=== PATIENT | male | born 1975 | race Caucasian/White ===

== ENCOUNTER 2017-09-06 00:18 | Observation (INO) ==
[2017-09-06] MEDS ORDERED: Folic Acid 1 MG in D5% in Water 50 ML IVPB ONE (00:23)
[2017-09-06] MEDS ORDERED: Thiamine (B-1) 100 MG, Folic Acid 1 MG in D5% in Water 50 ML IVPB ONE (00:23)
[2017-09-06 00:35] LABS: Basophils # 0.1 K/mcL (0.0-0.2); Basophils % 0.5 %; Eosinophils # 0.1 K/mcL (0.0-0.6); Eosinophils % 0.4 %; Hematocrit 45.7 % (37.5-50.1); Hemoglobin 15.3 g/dL (12.9-16.9); Immature Granulocytes % 0.4 % (0-4); Lymphocytes # 4.6 K/mcL (0.6-4.6); Lymphocytes % 31.1 %; Mean Corpuscular HGB Conc 33.5 g/dL (31.6-35.5); Mean Corpuscular Hemoglobin 32.3 pg (28.0-33.3); Mean Corpuscular Volume 96.6 fL (83.0-100.0); Mean Platelet Volume 10.5 fL (9.4-12.4); Monocytes # 1.4 K/mcL (0.0-1.3); Monocytes % 9.3 %; Neutrophils # 8.7 K/mcL (1.6-8.9); Platelet Count 249 K/mcL (140-400); Red Blood Count 4.73 M/mcL (4.19-5.50); Red Cell Distribution Width 13.2 % (11.5-14.5); Segmented Neutrophils % 58.3 %
--- NOTE | 2017-09-06 00:42 | Emergency Department Note ---
Disposition Clinical Impression: Alcoholic intoxication Qualifiers: Complication of substance-induced condition: with unspecified complication Qualified Code(s): F10.929 - Alcohol use, unspecified with intoxication, unspecified Pancreatitis Qualifiers: Chronicity: acute Pancreatitis type: alcohol induced Acute pancreatitis complication: unspecified Qualified Code(s): K85.20 - Alcohol induced acute pancreatitis without necrosis or infection Disposition: Admitted As Inpatient Alcohol HPI - General Chief Complaint: ED Alcohol Abuse Stated Complaint: ETOH Source: patient, EMS Limitations: no limitations Nursing Notes Reviewed: Yes Vital Signs Reviewed: Yes - History of Present Illness HPI Narrative: 42-year-old male presents to the emergency department with concern for alcohol intoxication. Patient was stated to have fallen out of a taxicab. The fall was not witnessed. EMS states that patient's vitals are stable on arrival. He stated that his respiratory status was stable as well. Patient does not answer any questions. - Related Data Allergies Allergy/AdvReac Type Severity Reaction Status Date / Time Unable to Assess Allergy Unverified 09/06/17 00:30 All systems ED: reviewed and negative except as stated. Review of Systems: As Per HPI Limitations: ROS unobtainable due to patients medical condition Past Medical History - Past Medical History Medical history: Reports: other - Social History Smoking Status: Unknown if ever smoked Smokeless Tobacco Status: No Alcohol use: Reports: heavy, recent Drug use: Reports: other Physical Exam CONSTITUTIONAL: Altered then appearing 42-year-old male who appears older than stated age, not responding to questions. HEAD: Normocephalic; atraumatic. EYES: PERRL, no scleral icterus. NOSE: The nose is normal in appearance without rhinorrhea RESP: Normal chest excursion with respiration; breath sounds clear and equal bilaterally; no wheezes, rhonchi, or rales CARD: Regular rhythm, without murmurs, rub or gallop ABD: Non-distended; non-tender, soft,without rigidity, rebound or guarding SKIN: Normal for age and race; warm and dry; no apparent lesions Neuro: GCS 10, no focal neurologic deficits, strength 5 out of 5 in upper and lower extremities bilaterally - General Limitations: no limitations General appearance: alert, in no apparent distress, appears intoxicated Course Vital Signs Temperature 97.4 F L 09/06/17 00:27 Pulse Rate 89 09/06/17 00:27 Respiratory Rate 18 09/06/17 00:27 Blood Pressure 164/89 09/06/17 00:27 O2 Sat by Pulse Oximetry 97 09/06/17 00:27 Temperature 97.4 F L 09/06/17 00:27 Pulse Rate 84 09/06/17 04:46 Respiratory Rate 16 09/06/17 04:46 Blood Pressure 143/75 09/06/17 04:46 O2 Sat by Pulse Oximetry 98 09/06/17 04:46 Oxygen Delivery Oxygen Delivery Room Air Alcohol - MDM Narrative Medical decision making narrative: 42-year-old male presents to emergency department intoxicated probably by alcohol. We are obtaining a CT of the head at this time as this patient has altered mental status and fall out of a cabinet or been reported. Patient currently has a GCS of 10 at this time. He does have a gag reflex and appears to be objectively protecting his airway. We will obtain a chest x-ray, EKG, CBC , CMP, alcohol level. I will give this patient thiamine and folate while here in the emergency department. He will be observed. Patient has a mild leukocytosis of 14.9. Chest x-ray does not reveal any evidence of pneumonia. Head CT does not reveal any evidence of intracranial abnormality. Abdomen and pelvis CT was obtained secondary to patient having an elevated lipase 454. This did not reveal any evidence of any abnormality. Patient had an alcohol level of 433. Patient was admitted to the hospital as he needs observation secondary to his acute intoxication as well as pancreatitis. The patient has protected his airway throughout the entire visit. He is having a good gag reflex, he has been able to handle his secretions. Patient is arousable to sternal rub while in the emergency department. I spoke with the hospitalist who agreed to accept the patient this time for further evaluation and observation for this patient's pancreatitis as well as acute alcoholic intoxication. Chest X-Ray 09/06/17 00:23 IMPRESSION: Negative portable chest. D/ / Estevan Massey MD / Estevan Massey MD Interpreting Provider: Estevan Massey MD Head CT 09/06/17 00:26 IMPRESSION: No acute intracranial abnormality. D/ / Estevan Massey MD / Estevan Massey MD Interpreting Provider: Estevan Massey MD Abdomen/Pelvis CT 09/06/17 01:11 IMPRESSION: No acute findings. Distended urinary bladder. D/ / Estevan Massey MD / Estevan Massey MD Interpreting Provider: Estevan Massey MD - Lab Data Result diagrams: 09/06/17 00:30 09/06/17 00:30 Lab Results 09/06/17 09/06/17 09/06/17 Range/Units 00:30 00:30 00:30 WBC 14.9 H (4.3-11.1) K/mcL RBC 4.73 (4.19-5.50) M/mcL Hgb 15.3 (12.9-16.9) g/dL Hct 45.7 (37.5-50.1) % MCV 96.6 (83.0-100.0) fL MCH 32.3 (28.0-33.3) pg MCHC 33.5 (31.6-35.5) g/dL RDW 13.2 (11.5-14.5) % Plt Count 249 (140-400) K/mcL MPV 10.5 (9.4-12.4) fL Immature Gran % 0.4 (0-4) % Seg Neutrophils % 58.3 % Lymphocytes % 31.1 % Monocytes % 9.3 % Eosinophils % 0.4 % Basophils % 0.5 % Neutrophils # 8.7 (1.6-8.9) K/mcL Lymphocytes # 4.6 (0.6-4.6) K/mcL Monocytes # 1.4 H (0.0-1.3) K/mcL Eosinophils # 0.1 (0.0-0.6) K/mcL Basophils # 0.1 (0.0-0.2) K/mcL Sodium 141 (136-145) mEq/L Potassium 3.2 L (3.5-4.5) mEq/L Chloride 105 (98-109) mEq/L Carbon Dioxide 24 (19-29) mEq/L BUN 13 (8-26) mg/dL Creatinine 0.99 (0.72-1.25) mg/dL Est GFR ( Amer) > 60 (> 60) Est GFR (Non-Af Amer) > 60 (> 60) BUN/Creatinine Ratio 13 (6-26) Glucose 138 H (70-99) mg/dL Calculated Osmolality 294 (280-300) Calcium 9.3 (8.6-10.8) mg/dL Phosphorus 2.6 (2.3-4.7) mg/dL Magnesium 2.7 H (1.6-2.6) mg/dL Total Bilirubin 0.3 (0.2-1.2) mg/dL AST 14 (5-34) Units/L ALT 10 (0-55) Units/L Alkaline Phosphatase 74 (38-126) Units/L Creatine Kinase (30-200) Units/L Serum Total Protein 7.7 (6.0-8.3) g/dL Albumin 4.4 (3.5-5.0) g/dL Globulin 3.3 (2.4-3.5) g/dL Albumin/Globulin Ratio 1.3 (1.1-2.2) Lipase 445 H 454 H (8-78) Units/L Urine Color (Yellow) Urine Clarity (Clear) Urine pH (5.0-8.0) pH Units Ur Specific [place] (1.010-1.025) Urine Protein (Neg-Trace) mg/dL Urine Glucose (UA) (Normal) mg/dL Urine Ketones (Negative) mg/dL Urine Blood (Negative) Urine Nitrite (Negative) Urine Bilirubin (Negative) Urine Urobilinogen (Normal) mg/dL Ur Leukocyte Esterase (Negative) Urine Opiates Screen (Qhveho=309) ng/mL Ur Barbiturates Screen (Rdogvi=571) ng/mL Ur Phencyclidine Scrn (Cutoff=25) ng/mL Ur Amphetamines Screen (Hpmigu=8682) ng/mL U Benzodiazepines Scrn (Viakbr=700) ng/mL Urine Cocaine Screen (Cutoff= 300) ng/mL U Marijuana (THC) Screen (Cutoff = 50) ng/mL Ethyl Alcohol 433 H (0-10) mg/dL 09/06/17 09/06/17 09/06/17 Range/Units 00:30 00:35 00:35 WBC (4.3-11.1) K/mcL RBC (4.19-5.50) M/mcL Hgb (12.9-16.9) g/dL Hct (37.5-50.1) % MCV (83.0-100.0) fL MCH (28.0-33.3) pg MCHC (31.6-35.5) g/dL RDW (11.5-14.5) % Plt Count (140-400) K/mcL MPV (9.4-12.4) fL Immature Gran % (0-4) % Seg Neutrophils % % Lymphocytes % % Monocytes % % Eosinophils % % Basophils % % Neutrophils # (1.6-8.9) K/mcL Lymphocytes # (0.6-4.6) K/mcL Monocytes # (0.0-1.3) K/mcL Eosinophils # (0.0-0.6) K/mcL Basophils # (0.0-0.2) K/mcL Sodium (136-145) mEq/L Potassium (3.5-4.5) mEq/L Chloride (98-109) mEq/L Carbon Dioxide (19-29) mEq/L BUN (8-26) mg/dL Creatinine (0.72-1.25) mg/dL Est GFR ( Amer) (> 60) Est GFR (Non-Af Amer) (> 60) BUN/Creatinine Ratio (6-26) Glucose (70-99) mg/dL Calculated Osmolality (280-300) Calcium (8.6-10.8) mg/dL Phosphorus (2.3-4.7) mg/dL Magnesium (1.6-2.6) mg/dL Total Bilirubin (0.2-1.2) mg/dL AST (5-34) Units/L ALT (0-55) Units/L Alkaline Phosphatase (38-126) Units/L Creatine Kinase 124 (30-200) Units/L Serum Total Protein (6.0-8.3) g/dL Albumin (3.5-5.0) g/dL Globulin (2.4-3.5) g/dL Albumin/Globulin Ratio (1.1-2.2) Lipase (8-78) Units/L Urine Color Yellow (Yellow) Urine Clarity Cloudy A (Clear) Urine pH 6.5 (5.0-8.0) pH Units Ur Specific [place] 1.012 (1.010-1.025) Urine Protein Negative (Neg-Trace) mg/dL Urine Glucose (UA) Normal (Normal) mg/dL Urine Ketones Negative (Negative) mg/dL Urine Blood Negative (Negative) Urine Nitrite Negative (Negative) Urine Bilirubin Negative (Negative) Urine Urobilinogen Normal (Normal) mg/dL Ur Leukocyte Esterase Negative (Negative) Urine Opiates Screen Negative (Nbrgtk=462) ng/mL Ur Barbiturates Screen Negative (Zidcnb=040) ng/mL Ur Phencyclidine Scrn Negative (Cutoff=25) ng/mL Ur Amphetamines Screen Negative (Wpimjq=2038) ng/mL U Benzodiazepines Scrn Negative (Cznebf=181) ng/mL Urine Cocaine Screen Negative (Cutoff= 300) ng/mL U Marijuana (THC) Screen Positive H (Cutoff = 50) ng/mL Ethyl Alcohol (0-10) mg/dL - EKG Data EKG attestation: Yes I reviewed and interpreted this EKG. EKG results narrative: 00:55 Ventricular rate 67 bpm, SD interval 152 ms, QRS duration 100 ms, QTC 421 ms, QTC 437 ms, normal axis. Sinus rhythm with a ventricular rate of 67 bpm. There are no ischemic ST changes noted on this electrocardiogram. No evidence of any shortened SD interval, tall R-wave in aVR. No study to compare this one to Attestation Statement - Attestation Attestation: I, Dax Tee MD, personally evaluated this patient and discussed their management with the resident physician. I reviewed the resident's note and agree with the documented findings, medical decision making, and plan of care. 42-year-old male brought to the emergency department by embolus for alcohol intoxication. Patient was apparently trying to get out of a taxi when he fell and could not get up. EMS was called and brought him here. On arrival here the patient is alert but appears to be obviously intoxicated and has a strong odor of alcohol. He is unable to answer questions or follow commands. On examination patient is a well-developed well-nourished male in no acute distress. He is awake but drowsy and appears intoxicated. There is no cyanosis or diaphoresis. Neck is supple with no apparent tenderness. Breath sounds are decreased but equal bilaterally. Heart regular rate and rhythm. Abdomen soft with normal bowel sounds. No distention or apparent tenderness. Peripheral edema. Labs reviewed. Alcohol 433. Amylase 454. Chest x-ray negative. Head CT negative. CT of the abdomen and pelvis negative. The hospitalist, Dr. Torres, was consulted and accepted admission of the patient.
[2017-09-06 00:45] LABS: Bilirubin,Urine Negative (Negative); Blood,Urine Negative (Negative); Clarity,Urine Cloudy (Clear); Color,Urine Yellow (Yellow); Glucose,Urine (UA) Normal (Normal); Ketones,Urine Negative (Negative); Leukocyte Esterase,Urine Negative (Negative); Nitrite,Urine Negative (Negative); PH,Urine 6.5 pH Units (5.0-8.0); Protein,Urine Negative (Neg-Trace); Specific Gravity,Urine 1.012 (1.010-1.025); Urobilinogen,Urine Normal (Normal)
[2017-09-06 00:50] LABS: Alanine Aminotransferase 10 Units/L (0-55); Albumin 4.4 g/dL (3.5-5.0); Albumin/Globulin Ratio 1.3 (1.1-2.2); Alkaline Phosphatase 74 Units/L (38-126); Aspartate Amino Transferase 14 Units/L (5-34); BUN/Creatinine Ratio 13 (6-26); Bilirubin,Total 0.3 mg/dL (0.2-1.2); Blood Urea Nitrogen 13 mg/dL (8-26); Calcium 9.3 mg/dL (8.6-10.8); Carbon Dioxide 24 mEq/L (19-29); Chloride 105 mEq/L (98-109); Globulin 3.3 g/dL (2.4-3.5); Glucose 138 mg/dL (70-99); Lipase 454 Units/L (8-78); Magnesium 2.7 mg/dL (1.6-2.6); Osmolality,Calculated 294 (280-300); Phosphorous 2.6 mg/dL (2.3-4.7); Potassium 3.2 mEq/L (3.5-4.5); Sodium 141 mEq/L (136-145); Total Protein 7.7 g/dL (6.0-8.3); eGFR For African Americans > 60 (> 60); eGFR For Non-African Americans > 60 (> 60)
[2017-09-06 00:50] LABS: Amphetamine Screen,Urine Negative ng/mL (Cutoff=1000); Barbiturate Screen,Urine Negative ng/mL (Cutoff=200); Benzodiazepines Screen,Urine Negative ng/mL (Cutoff=200); Cannabinoid Screen,Urine Positive ng/mL (Cutoff = 50); Cocaine Screen,Urine Negative ng/mL (Cutoff= 300); Opiate Screen,Urine Negative ng/mL (Cutoff=300); Phencyclidine Screen,Urine Negative ng/mL (Cutoff=25)
[2017-09-06] MEDS ORDERED: 0.9 % Sodium Chloride 1,000 ML IVC ONE (01:10)
[2017-09-06] MEDS ORDERED: *HR* LORazepam 2 MG/ML VIAL IVP ONE ×2 (04:36→11:32)
[2017-09-06] MEDS ORDERED: *HR* LORazepam 2 MG/ML VIAL IVP PRN (10:07)
[2017-09-06] MEDS ORDERED: Naloxone 0.4 MG/ML INJ IVP PRN (10:10)
--- NOTE | 2017-09-06 10:19 | Internal Med History&Physical ---
Date of Encounter: 09/06/17 Time of Encounter: 08:00 Assessment and Plan (1) Alcoholic intoxication Current visit: Yes Status: Acute -Patient somnolent on exam due to elevated blood alcohol levels but is in no acute distress; vital signs stable -Continue to monitor and [facility] protocol initiated -fairing worker also consult. Qualifiers: Complication of substance-induced condition: uncomplicated Qualified Code(s ): F10.920 - Alcohol use, unspecified with intoxication, uncomplicated (2) Pancreatitis Current visit: Yes Status: Acute -Patient also found to have elevated lipase secondary to the above but no abdominal pain on exam. -Will continue to monitor. Qualifiers: Chronicity: acute Pancreatitis type: alcohol induced Acute pancreatitis complication: unspecified Qualified Code(s): K85.20 - Alcohol induced acute pancreatitis without necrosis or infection (3) Hypokalemia Current visit: Yes Status: Acute -Potassium was slightly low at 3.2; replacements given. -Will continue to monitor. Internal Medicine - H&P: HPI Chief complaint: Alcohol intoxication Admitted From: Home Plans for Post Hospital Care: Home History of present illness: Patient is a 42-year-old male with past medical history significant for alcohol dependence who presents the ER on 09/06/17 intoxicated. Patient is intoxicated therefore not able to give any history. In the ER, patient found to be slightly hypokalemic, urine tox positive for marijuana with elevated levels of alcohol. Patient also found to have elevated lipase. CT of the head showed no acute findings. Patient will be admitted to the medical surgical floor for alcohol withdrawal and mild alcoholic induced pancreatitis. Past Med Surg Social Fam HX - Past Medical History Medical history: other - Social History Smoking Status: Unknown if ever smoked Smokeless Tobacco Status: No Alcohol use: heavy, recent Drug use: other Internal Medicine - H&P: Meds 3 Allergy/AdvReac Type Severity Reaction Status Date / Time No Known Allergies Allergy Verified 09/06/17 08:56 ROS unobtainable: due to mental status (Alcohol intoxication) All Systems PM: A 10-system review of systems was performed and is negative for pertinent findings except as documented above in the HPI. - Constitutional Vitals: Temp Pulse Resp BP Pulse Ox 97.4 F L 73 15 114/72 97 09/06/17 08:35 09/06/17 08:35 09/06/17 08:35 09/06/17 08:35 09/06/17 08:35 General appearance: Present: A&O X 3, no acute distress - Head Head exam: Present: normocephalic - ENT ENT exam: Present: mucous membranes dry - Respiratory Respiratory exam: Present: CTAB. Absent: accessory muscle use, rales, rhonchi, wheezes - GI/Abdominal GI/Abdominal exam: Present: normal bowel sounds, soft, no peritoneal signs. Absent: distended, tenderness - Extremities Exam Extremities exam: Absent: pedal edema - Neurological Exam Neurological exam: Present: oriented X3 - Psychiatric Psychiatric exam: Present: normal mood - Skin Skin exam: Present: normal color Internal Med - H&P Results - Labs CBC & Chem 7: 09/06/17 00:30 09/06/17 00:30 - VTE Reasons for not Prescribing Prophylaxis: Treatment not Indicated - Low risk for VTE
[2017-09-06] MEDS ORDERED: *HR* LORazepam 2 MG/ML VIAL ONE (11:05)
[2017-09-06] MEDS: Nicotine 21 MG PATCH.TD24 TD SCH (22:03)
[2017-09-07 06:36] LABS: BUN/Creatinine Ratio 21 (6-26); Blood Urea Nitrogen 15 mg/dL (8-26); Calcium 8.7 mg/dL (8.6-10.8); Carbon Dioxide 20 mEq/L (19-29); Chloride 104 mEq/L (98-109); Glucose 58 mg/dL (70-99); Lipase 30 Units/L (8-78); Osmolality,Calculated 285 (280-300); Potassium 3.9 mEq/L (3.5-4.5); Sodium 138 mEq/L (136-145); eGFR For African Americans > 60 (> 60); eGFR For Non-African Americans > 60 (> 60)
[2017-09-07 06:58] LABS: Basophils # 0.1 K/mcL (0.0-0.2); Basophils % 0.4 %; Eosinophils % 0.2 %; Hematocrit 40.7 % (37.5-50.1); Hemoglobin 13.4 g/dL (12.9-16.9); Immature Granulocytes % 0.5 % (0-4); Lymphocytes # 2.1 K/mcL (0.6-4.6); Lymphocytes % 11.9 %; Mean Corpuscular HGB Conc 32.9 g/dL (31.6-35.5); Mean Corpuscular Hemoglobin 32.3 pg (28.0-33.3); Mean Corpuscular Volume 98.1 fL (83.0-100.0); Mean Platelet Volume 10.8 fL (9.4-12.4); Monocytes # 0.9 K/mcL (0.0-1.3); Monocytes % 5.4 %; Neutrophils # 14.1 K/mcL (1.6-8.9); Platelet Count 232 K/mcL (140-400); Red Blood Count 4.15 M/mcL (4.19-5.50); Red Cell Distribution Width 13.5 % (11.5-14.5); Segmented Neutrophils % 81.6 %
[2017-09-07] MEDS ORDERED: Thiamine (B-1) 100 MG TABLET PO SCH (09:00)
[2017-09-07] MEDS ORDERED: Vitamin B Complex/Vit C/Vit E 1 EACH TABLET PO SCH (09:00)
[2017-09-07] MEDS ORDERED: Folic Acid 1 MG TABLET PO SCH (09:00)
[2017-09-07] MEDS: Nicotine 21 MG PATCH.TD24 TD SCH (09:35)
--- NOTE | 2017-09-07 09:52 | Discharge Summary ---
Date of Encounter: 09/07/17 Time of Encounter: 09:30 - Discharge Diagnosis (1) Alcoholic intoxication Priority: Primary Status: Acute Comments: She was admitted for acute alcohol intoxication. He was somnolent on exam due to alcohol being over 400. He was admitted to observation unit for pancreatitis and hypokalemia. Patient reports that he only drinks every 2 weeks on payday. He reports he drinks "1-2 cups" of rum and Coke. Initial ETOH level on arrival was 433. Repeat today <10. Pt denies need for Alcohol treatment or support groups. Qualifiers: Complication of substance-induced condition: uncomplicated Qualified Code(s ): F10.920 - Alcohol use, unspecified with intoxication, uncomplicated (2) Leukocytosis Priority: Secondary Status: Chronic Comments: Pt with leukocytosis on admission, most likely reactive from stress. Pt without fever, tachycardia, or known source of infection. Urine negative for infection, chest xray negative, CT abd/pelvis negative for acute findings. Unknown source at this time. Pt does not appear toxic and states that he feels well. Initial WBC 17,3, has declined to 14.0 prior to discharge. Upon further discussion, pt states that he has been told several times that his WBC is always elevated without known cause. Pt states that he is anxious to go home and is declining further testing or evaluation. Qualifiers: Leukocytosis type: unspecified Qualified Code(s): D72.829 - Elevated white blood cell count, unspecified (3) Pancreatitis Priority: Secondary Status: Acute Comments: Patient had elevated lipase 454 on arrival. Since that time, his returned to within normal limits. Patient has no pain. He does have mild leukocytosis. He reports no prior history of pancreatitis. Qualifiers: Chronicity: acute Pancreatitis type: alcohol induced Acute pancreatitis complication: unspecified Qualified Code(s): K85.20 - Alcohol induced acute pancreatitis without necrosis or infection (4) Hypokalemia Priority: Secondary Status: Resolved - Discharge Medications Home Medications: Unable To Obtain [Unable to Obtain] 09/06/17 [History] Allergies/Adverse Reactions: 3 Allergy/AdvReac Type Severity Reaction Status Date / Time No Known Allergies Allergy Verified 09/06/17 08:56 Date of admission: 09/06/17 03:16 Primary care physician: PCP NONE Consults: 09/06/17 10:08 Consult to Field Service Technician [CONS] Routine Reason for SW Consult: etoh abuse Discharging clinician: Alma Tobar Anticipated date of discharge: 09/07/17 - Patient Status Disposition: Home, Self-Care Condition: Good Functional capacity at discharge: independent ambulation Overall status at discharge: patient is back to baseline - Discharge Instructions Follow Up With: NONE,PCP [Primary Care Provider] - Additional Instructions: Please follow up with your PCP in the next 7-10 days for a recheck. Return to the ER as needed for any other problems or concerns. You may return to work tomorrow. Resume your normal activities and diet as tolerated. - Diet and Activity Activity: increase activity as tolerated Diet: advance to your usual diet Hospital course: Mr. William is a 42 year old male with no significant past medical history who was admitted for alcohol intoxication and elevated lipase. Lipase is returned to normal. Patient was treated with IV fluids and pain medication. He is alert and oriented has returned to baseline. He has no abdominal pain, no headache no nausea or vomiting or dizziness, no fever or chills. He denies need for any substance abuse or alcohol cessation programs. Patient is ready for discharge. - Time Spent with Patient Total time spent providing and/or coordinating discharge services: Less than 30 minutes - Constitutional Vitals: Temp Pulse Resp BP Pulse Ox 97.9 F 60 16 104/59 97 09/07/17 08:04 09/07/17 08:04 09/07/17 08:04 09/07/17 08:04 09/07/17 08:04 General appearance: Present: cooperative, A&O X 3, no acute distress, answers questions appropriately - Head Head exam: Present: atraumatic, normal inspection, normocephalic - Eye Eye exam: Present: normal appearance, conjuntiva pink, sclera anicteric - Neck Neck exam general surgery: Present: supple, trachea midline. Absent: lymphadenopathy, tenderness - Respiratory Respiratory exam: Present: CTAB. Absent: accessory muscle use, chest wall tenderness, decreased breath sounds, rales, respiratory distress, rhonchi, wheezes - Cardiovascular Cardiovascular exam: Present: RRR, +S1, +S2. Absent: diastolic murmur, gallop, rubs, systolic murmur - GI/Abdominal GI/Abdominal exam: Present: normal bowel sounds, soft, no peritoneal signs. Absent: distended, hepatomegaly, tenderness - Extremities Exam Extremities exam: Present: normal capillary refill, warm, radial pulses palpable and symmetrical. Absent: calf tenderness, cyanotic, pedal edema, tenderness - Neurological Exam Neurological exam: Present: alert, oriented X3, no focal deficits. Absent: facial droop, speech deficit - Skin Skin exam: Present: dry, intact, normal color, warm. Absent: rash - VTE Reasons for not Prescribing Prophylaxis: Treatment not Indicated - Low risk for VTE
[2017-09-07] MEDS ORDERED: 0.9 % Sodium Chloride 1,000 ML ONE (09:55)
[2017-09-07] MEDS ORDERED: 0.9 % Sodium Chloride 1,000 ML IVC SCH (10:00)
[2017-09-07 11:55] VITALS: BP 120/67
--- NOTE | 2017-09-08 14:38 | Electrocardiograph Report ---
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
== END 2017-09-07 14:30 | disposition home or self-care (01) ==
LOC: EMEROO 00:18 → 3BNU 00:18
PROVIDERS: ADMIT Hospitalist; ATTEND Registered Nurse